=== PATIENT | male | born 1960 | race Two or more races ===

== ENCOUNTER 2016-07-15 12:10 | Emergency (ER) | payer MEDICARE, MEDICAID ==
[~2016-07-15] VITALS: Ht 172.7 cm; Wt 77.0 kg
[2016-07-15] MEDS ORDERED: LORAZEPAM 1MG TABLET PO ONE (13:30)
[2016-07-15] MEDS ORDERED: DIVALPROEX SODIUM 500MG DR TABLET PO ONE (14:30)
[2016-07-15 16:48] VITALS: BP 129/75
== END 2016-07-15 16:50 ==
LOC: ER 12:22
DX: S01.81XA Laceration without foreign body of other part of head, initial encounter (principal); S09.90XA Unspecified injury of head, initial encounter; J44.9 Chronic obstructive pulmonary disease, unspecified; E03.9 Hypothyroidism, unspecified; F20.9 Schizophrenia, unspecified; Z91.041 Radiographic dye allergy status; Z88.8 Allergy status to other drugs, medicaments and biological substances; W22.01XA Walked into wall, initial encounter; Y93.89 Activity, other specified; Y92.89 Other specified places as the place of occurrence of the external cause; Y99.8 Other external cause status
CPT/HCPCS: 12013; 99283